=== PATIENT | female | born 1990 | race Two or more races ===

== ENCOUNTER 2017-12-14 15:15 | Emergency (ER) | payer OTHER ==
[~2017-12-14] VITALS: Ht 170.2 cm; Wt 73.5 kg
== END 2017-12-14 21:15 | disposition home or self-care (01) ==
LOC: ER 15:15
DX: K52.9 Noninfective gastroenteritis and colitis, unspecified (principal)

== ENCOUNTER 2018-05-31 15:45 | Inpatient (IN) | payer OTHER ==
[~2018-05-31] VITALS: Ht 170.2 cm; Wt 80.7 kg
[2018-05-31] MEDS ORDERED: ZYRTEC10 MG PO (17:38)
[2018-05-31] MEDS ORDERED: PRENATAL FORMU1 EAC1 PO (17:38)
== END 2018-06-02 11:42 | DRG 833 ==
LOC: LDR 15:45 → OB/GYN 06-01 20:33
PROC: 4A1HXCZ Monitoring of Products of Conception, Cardiac Rate, External Approach (ICD-10-PCS; principal; 2018-05-31)
PROC: BY4FZZZ Ultrasonography of Third Trimester, Single Fetus (ICD-10-PCS; 2018-05-31)
PROC: BU4CZZZ Ultrasonography of Uterus and Ovaries (ICD-10-PCS; 2018-05-31)
DX: O60.03 Preterm labor without delivery, third trimester (principal); Z34.03 Encounter for supervision of normal first pregnancy, third trimester

== ENCOUNTER 2018-06-26 11:48 | Inpatient (IN) | payer OTHER ==
[~2018-06-26] VITALS: Ht 157.5 cm; Wt 81.2 kg
[~2018-06-26 11:48] MED LIST: PRENATAL FORMU1 EAC1 PO; ZYRTEC10 MG PO
== END 2018-06-28 12:20 | DRG 807 ==
LOC: LDR 11:48 → SURG-SUITE 18:06
PROC: 10E0XZZ Delivery of Products of Conception, External Approach (ICD-10-PCS; principal; 2018-06-26)
PROC: 4A1HXCZ Monitoring of Products of Conception, Cardiac Rate, External Approach (ICD-10-PCS; 2018-06-26)
PROC: 0HQ9XZZ Repair Perineum Skin, External Approach (ICD-10-PCS; 2018-06-26)
DX: O70.0 First degree perineal laceration during delivery (principal); Z37.0 Single live birth; Z3A.37 37 weeks gestation of pregnancy